=== PATIENT | male | born 1980 | race Two or more races ===

== ENCOUNTER 2019-04-03 15:22 | Emergency (ER) | payer OTHER ==
[~2019-04-03] VITALS: Ht 170.2 cm; Wt 95.3 kg
[2019-04-03 15:27] VITALS: BP 117/70
== END 2019-04-03 15:59 | disposition home or self-care (01) ==
LOC: ER 15:28
DX: S39.012A Strain of muscle, fascia and tendon of lower back, initial encounter (principal); K64.9 Unspecified hemorrhoids; X58.XXXA Exposure to other specified factors, initial encounter; Y93.89 Activity, other specified; Y92.89 Other specified places as the place of occurrence of the external cause; Y99.8 Other external cause status